=== PATIENT | female | born 1960 | race American Indian/Alaskan Native ===

== ENCOUNTER 2017-05-15 19:51 | Emergency (ER) | payer BC ==
[2017-05-15 20:03] VITALS: BP 107/48; PULSE 53; TEMP 97.7; BMI 22.3
--- NOTE | 2017-05-15 20:29 | PDOC ---
History of Present Illness - General Chief Complaint: Pain Stated Complaint: FALL/ANKLE PAIN Time Seen by Provider: 05/15/17 20:20 History Source: Patient Exam Limitations: No Limitations - History of Present Illness Initial Comments: 05/15/17 20:21 Patient was walking down staircase when stumbled over last day or causing inversion injury to her right ankle. States was painful to time and unable to bear weight. Incident occurred this morning, was in [place], family drove home with her foot elevated and ice packs applied. No other injury 05/15/17 21:52 Occurred: reports: this morning Severity: reports: mild, moderate Pain Location: reports: lower extremity (right ankle) Method of Injury: Yes: fall Modifying Factors: improves with: cold therapy Associated Symptoms (Fall): denies symptoms Past History - Travel Traveled outside of the country in the last 30 days: No Close contact w/someone who was outside of country & ill: No - Past Medical History Allergies/Adverse Reactions: Allergies Allergy/AdvReac Type Severity Reaction Status Date / Time No Known Allergies Allergy Verified 05/15/17 19:57 Hypercholesterolemia: Yes - Psycho/Social/Smoking Cessation Hx Suicidal Ideation: No Smoking History: Never smoked Information on smoking cessation initiated: No Hx Alcohol Use: No Drug/Substance Use Hx: No Substance Use Type: None Trauma Specific PMHX - Complaint Specific PMHX Back Injury: No Neck Injury: No Review of Systems - Review of Systems Able to Perform ROS?: Yes Is the patient limited [place] proficient: Yes HEENTM: Yes: See HPI. No: Symptoms Reported Musculoskeletal: Yes: Symptoms Reported, See HPI, Joint Pain, Joint Swelling ( right ankle) Integumentary: Yes: See HPI, Bruising All Other Systems: Reviewed and Negative *Physical Exam - Vital Signs Last Vital Signs Temp Pulse Resp BP Pulse Ox 97.7 F 53 L 19 107/48 98 05/15/17 19:58 05/15/17 19:58 05/15/17 19:58 05/15/17 19:58 05/15/17 19:58 - Physical Exam General Appearance: Yes: Nourished, Appropriately Dressed, Apparent Distress, Mild Distress HEENT: positive: JAGDISH, Normal ENT Inspection, TMs Normal, Pharynx Normal Neck: positive: Supple. negative: Lymphadenopathy (R), Lymphadenopathy (L) Respiratory/Chest: positive: Lungs Clear, Normal Breath Sounds Extremity: positive: Normal Capillary Refill, Normal Range of Motion, Tender. negative: Normal Inspection Integumentary: positive: Dry, Swelling, Ecchymosis, Bruising (merits the lateral aspect of the right midfoot fifth metatarsal area. 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 NML intact, Fully Oriented, Alert, Normal Mood/ Affect, Normal Response, Motor Strength 5/5 Procedures - Splinting Splint Location: Right: Foot (right midfoot Harjinder wrap and cast shoe provided), Ankle Post-Proc Neuro Vasc Exam: normal, unchanged from pre-exam Harjinder Bandage: 4" ED Treatment Course - RADIOLOGY Radiology Studies Ordered: Category Date Time Status ANKLE-RIGHT [RAD] Stat Radiology 05/15/17 20:21 Ordered Progress Note - Progress Note Progress Note: Right ankle sprain, x-rays negative for fracture dislocation *DC/Admit/Observation/Transfer Diagnosis at time of Disposition: Ankle sprain Qualifiers: Encounter type: initial encounter Involved ligament of ankle: unspecified ligament Laterality: right Qualified Code(s): S93.401A - Sprain of unspecified ligament of right ankle, initial encounter - Discharge Dispostion Disposition: HOME Condition at time of disposition: Stable Admit: No - Referrals Referrals: Viviana Cochran MD [Primary Care Provider] - Adolfo Denton MD [Staff Physician] - - Patient Instructions Printed Discharge Instructions: DI for Ankle Sprain Additional Instructions: Rest, ice to area on and off for 15 minutes 4-6 times a day Avoid heavy lifting or exercise until pain and swelling is resolved or until further directed Keep area highly elevated to reduce swelling Use splints/Harjinder wrap as directed Followup with orthopedist in one to 2 days if not improving, if significantly improved may wait one week for followup with orthopedist May use ibuprofen 2-200 mg tablets every 6 hours as needed for pain - Post Discharge Activity Work/School Note: Back to Work
[2017-05-15] MEDS ORDERED: IBUPROFEN 600 MG TABLET (FP) PO ONE (20:50)
== END 2017-05-15 21:00 | disposition home or self-care (01) ==
LOC: JERFT 19:51
DX: S93.401A Sprain of unspecified ligament of right ankle, initial encounter (principal); W10.8XXA Fall (on) (from) other stairs and steps, initial encounter; Y93.89 Activity, other specified; Y92.89 Other specified places as the place of occurrence of the external cause
CPT/HCPCS: 73610-TC-RT; 99281-25

== ENCOUNTER 2022-02-12 04:57 | Day surgery (SDC) | payer OTHER ==
[2022-02-09 11:23] VITALS: BMI 20.7
[2022-02-12 11:05] VITALS: TEMP 96.9
[2022-02-12 11:26] VITALS: BP 125/76; PULSE 55
== END 2022-02-12 11:59 | disposition home or self-care (01) ==
LOC: JASU-ENDO 04:57
PROVIDERS: ATTEND Internal Medicine Gastroenterology
PROC: 0DJD8ZZ Inspection of Lower Intestinal Tract, Via Natural or Artificial Opening Endoscopic (ICD-10-PCS; principal; 2022-02-12 10:30)
DX: Z12.11 Encounter for screening for malignant neoplasm of colon (principal)